=== PATIENT | male | born 1970 | race Caucasian/White ===

== ENCOUNTER 2024-09-17 15:54 | Emergency (ER) | payer SELFPAY ==
[2024-09-17 15:55] VITALS: BP 194/127; PULSE 94; RESP 20; TEMP 36.7; O2SAT 95; BMI 34.0
[2024-09-17 16:07] VITALS: BP 192/118; PULSE 94; RESP 20; TEMP 36.7; O2SAT 95
--- NOTE | 2024-09-17 16:10 | PC.NURSE ---
PT BROUGHT IN FOR MEDICAL CLEARANCE FOR HIGH BP. PT STATES THAT HE KNOWS HE HAS HIGH BLOOD PRESSURE BUT HE DOES NOT TAKE MEDICATIONS FOR IT. PT REPORTS HEADACHE. PT MOVING ALL EXTREMITIES EQUALLY AND WITHOUT DIFFICULTY. PT FOLLOWING COMMANDS
--- NOTE | 2024-09-17 16:15 | EDNOTE_ITS ---
ED Medical Clearance RME/HPI General Chief complaint: Medical Clearance Stated complaint: MEDICAL CLEARANCE Time Seen by Provider: 09/17/24 16:07 Arrival date/time: 09/17/24 15:54 RME / HPI RME / HPI Narrative: 54 year old male with history of hypertension presents to the ED BIB [facility] for medical clearance for incarceration today. Per officer, while at the shelter blood pressure was 194/116. Patient reports medication noncompliance. No other associated symptoms or complaints reported. Related Information Previous Rx's ?Medication ?Instructions ?Recorded Hydrocodone/Acetaminophen * (NORCO 1 - 2 tab PO Q4H [place] N PAIN #20 tabs 12/11/15 5/325 *) hydralazine 50 mg tablet 50 mg PO TID #90 tabs hydralazine 25 mg tablet 25 mg PO BID #60 tabs Allergies Allergy/AdvReac Type Severity Reaction Status Date / Time No Known Allergies Allergy Verified 09/17/24 16:11 Review of Systems Review of Systems Narrative Review of Systems: GEN: No fever, no chills, no weight loss EYES: No discharge, no visual changes, no pain HEENT: No ear pain, no congestion, no sore throat PULM: No shortness of breath, no cough, no congestion CV: +elevated blood pressure. No chest pain, no dyspnea on exertion, no palpitations GI: No nausea, no vomiting, no diarrhea, no pain, no constipation : No frequency, no urgency and no dysuria MUSC/SKEL No joint pain, no back pain SKIN: No rash NEURO: No weakness, no headache Past Medical History Past Medical History CARDIAC: Positive Hypertension; Negative Congestive Heart Failure RESPIRATORY: Negative Chronic Obstructive Pulmonary Disease (COPD) GENITOURINARY: Negative Renal Disease ENDOCRINE: Negative Diabetes Mellitus Type 1 or Diabetes Mellitus Type 2 Social History SMOKING STATUS: Current some day smoker SUBSTANCE USE: does not use ED Exam Narrative Physical exam: GENERAL APPEARANCE: Well hydrated, well nourished, in no acute distress. VITALS: All vitals were reviewed and the pulse ox is 95% on room air which is normal according to my interpretation. HEENT: Normocephalic, atramatic, EOMI, EACs are patent. There is no bulge or retraction. Throat without erythema or exudate. Moist oromucosa. No jaundice NECK: Supple, no JVD or bruits. CARDIOVASCULAR: Heart regular without S3-S4 or murmur. No rubs or gallops. LUNGS/CHEST: Clear to auscultation bilaterally. No rales, rhonchi, or wheezing. Normal inspection. ABDOMEN: Soft, nontender, with normal bowel sounds. No pulsatile masses. No rebound, rigidity, or guarding. No incarcerated hernia. Normal inspection and palpation. EXTREMITIES: Normal inspection and palpation. No edema, clubbing, or cyanosis. Intact CSM SKIN: Warm and dry without rashes. Normal inspection. MUSCULOSKELETAL: Normal inspection. No gross deformity, full ROM all extremities NEURO: Alert and oriented x3. Cranial nerves II through XII grossly intact. There are no other motor or sensory deficits noted. PSYCHIATRIC: Normal mood and affect. No psychosis Course Quality Measures none Orders Category Date Time Status Labetalol IV [Trandate IV] Med 09/17/24 17:02 Discontinued 10 mg IVP X1 ONE cloNIDine HCL [Catapres] Med 09/17/24 16:08 Discontinued 0.2 mg PO Q30MIN ONE Vital Signs Vital signs: Vital Signs Temperature 98.1 F 09/17/24 15:55 Pulse Rate 94 09/17/24 15:55 Respiratory Rate 20 09/17/24 15:55 Blood Pressure 194/127 H 09/17/24 15:55 Pulse Oximetry (%) 95 09/17/24 15:55 Oxygen Delivery Method Room Air 09/17/24 15:55 Medical Clearance MDM Narrative MDM Narrative:: Mi Dominguez am scribing for and in the presence of Dr. Moran. Patient arrived here with a blood pressure 194/127. He was put into room #7 when he was given clonidine 0.2 mg sublingual and then labetalol 10 mg IV. They neuro his blood pressure now at about 550 is 160/90. The patient continues to have no symptoms. He is being medically cleared to be DC to attorney lawyer. I will write him a prescription for hydralazine 25 mg p.o. daily. This is the same medication that he took before. He is no longer taking it because he is medically noncompliance Patient data External records reviewed:: [facility] previous records (I reviewed ED visit on 12/03/2023) Clinical information provided by:: patient and law enforcement Social determinants that could affect healthcare access:: none Patient has the following chronic illnesses:: Hypertension How is presenting disease/condition affected by chronic disease/condition?: exacerbated by Evaluation data The following diagnostics were reviewed and interpreted by me:: lab results Lab and/or radiology exams considered but not ordered:: None Interpretation Summary: noted above Medications / Prescriptions Medications or Prescriptions considered but not ordered:: None Medication administrations:: Medication Administration History Discontinued Medications Clonidine (Clonidine Hcl 0.1 Mg Tablet) 0.2 mg PO Q30MIN ONE Stop: 09/17/24 16:09 Last Admin: 09/17/24 16:20 Dose: 0.2 mg Documented By: DO Labetalol HCl (Labetalol Inj 5 Mg/Ml Vial 20 Ml) 10 mg IVP X1 ONE Stop: 09/17/24 17:03 Last Admin: 09/17/24 17:15 Dose: 10 mg Documented By: DO See above Consultations Consultation(s) initiated? (list below): No Diagnosis Medical Clearance Differential Diagnosis: other (Hypertension, hypertensive urgency, hypertensive emergency ) Most likely diagnosis given after review of the tests above:: Hypertension Admission Indicated Admission indicated?: not indicated Admission Request Was there a request for admission?: No Disposition Plan Disposition Plan: Discharge Discharge Attestation Discharge Attestation: The patient and all family members were given an opportunity to ask questions and understood the discharge instructions. Discharge instructions specifically effects, indications for sooner follow up or return to the emergency department, and the expected course of current diagnosis. Patient condition: Stable Discharge Plan Plan Patient Disposition: Retirement/Court/Law Disposition Comment: Stable and improved Prescriptions/Referrals Prescriptions/Med Rec: New hydralazine 25 mg tablet 25 mg PO BID Qty: 60 0RF No Action Hydrocodone/Acetaminophen * (NORCO 5/325 *) 1 TAB tablet 1 - 2 tab PO Q4H PRN (Reason: PAIN) Qty: 20 0RF Rx Instructions: FOR PAIN hydralazine 50 mg tablet 50 mg PO TID Qty: 90 0RF Problem List Clinical Impression: Hypertension Patient/Caregiver Discharge Instructions Education Materials: ED Hypertension, Established Additional Instructions: Hydralazine as prescribed for high blood pressure. Follow-up with your medical doctor or healthcare provider next week for further evaluation and care and repeat blood pressure. Return the emergency department if any problem Print Language: [place]
[2024-09-17 16:20] VITALS: BP 192/118; PULSE 94
[2024-09-17] MEDS: cloNIDine HCL 0.1 MG TABLET 0.2 MG PO (16:20)
[2024-09-17 16:57] VITALS: BP 192/117
[2024-09-17 17:15] VITALS: BP 192/117; PULSE 84
[2024-09-17] MEDS: LABETALOL INJ 5 MG/ML VIAL 20 ML 10 MG IVP (17:15)
[2024-09-17 18:01] VITALS: BP 160/90; PULSE 71; RESP 16; TEMP 36.8; O2SAT 95
== END 2024-09-17 18:10 ==
LOC: SERX 18:34
PROVIDERS: Emergency Provider Emergency Medicine
DX: Z02.89 Encounter for other administrative examinations (principal); I10 Essential (primary) hypertension; Z91.148 Patient's other noncompliance with medication regimen for other reason
CPT/HCPCS: 99282; J3490; A9270; J1920